=== PATIENT | female | born 1985 | race Caucasian/White ===

== ENCOUNTER 2017-02-23 10:07 | Inpatient (IN) | payer OTHER ==
[~2017-02-23] VITALS: Ht 167.6 cm; Wt 118.9 kg
[~2017-02-23 10:07] MED LIST: ATORVASTATIN CA40 M1 PO; ENALAPRIL MALEA10 MG PO; GLIPIZIDE5 MG PO; GOOD SENSE ASPI81 M3 PO; HYDROCHLOROTHIA25 MG PO; HYDROXYZINE HYD25 MG PO; METFORMIN HCL1000 MG PO; NAPROSYN250 MG PO; TOPAMAX100 MG PO; VENLAFAXINE150 M1
[2017-02-23 10:50] LABS: BASOPHIL % 0.5 % (0-2); PLATELET COUNT 212 x10^3mcL (130-400); RED CELL DISTRIBUTION WIDTH 12.1 % (11.5-14.5)
[2017-02-23 11:01] LABS: CALCIUM 8.7 mg/dL (8.5-10.1); CARBON DIOXIDE 31.2 mmol/L (21-32); CHLORIDE SERUM 102 mmol/L (98-107); CREATININE SERUM 0.6 mg/dL (0.6-1.0); GFR1 > 60 mL/min; GLUCOSE SERUM 183 mg/dL (74-106); POTASSIUM SERUM 4.1 mmol/L (3.5-5.1); SODIUM SERUM 139 mmol/L (136-145)
[2017-02-23 11:07] LABS: ALBUMIN 3.4 g/dL (3.4-5.0); ALKALINE PHOSPHATASE 93 U/L (46-116); ALT/SGPT 46 U/L (14-59); AST/SGOT 28 U/L (15-37); BILIRUBIN TOTAL 0.3 mg/dL (0.20-1.00); TOTAL PROTEIN, SERUM 7.1 g/dL (6.4-8.2)
[2017-02-23] MEDS ORDERED: PROZAC40 MG PO (11:11)
[2017-02-23] MEDS ORDERED: METFORMIN HYD1000 M2 PO (11:14)
[2017-02-23] MEDS ORDERED: VIS25 PO (11:14)
[2017-02-23] MEDS ORDERED: GLIPIZIDE5 M2 PO (11:14)
[2017-02-23] MEDS ORDERED: ZESTRIL20 MG PO (11:14)
[2017-02-23] MEDS ORDERED: METOPROLOL TART25 M1 PO (11:15)
[2017-02-23] MEDS ORDERED: SIMVASTATIN20 M1 PO (11:15)
[2017-02-23 11:23] LABS: MAGNESIUM 1.6 mg/dL (1.8-2.4); PHOSPHOROUS 3.2 mg/dL (2.5-4.9)
[2017-02-23 11:34] LABS: T3 TOTAL 1.06 ng/mL
[2017-02-23 11:38] LABS: CHOLESTEROL/HDL RATIO 3.6
[2017-02-23 12:07] LABS: FREE T4 1.02 ng/dL (0.76-1.46); FREE THYROXINE INDEX 3.1 ug/dL (1.4-4.5); T4(THYROXINE) 8.7 ug/dL (4.7-13.3)
[2017-02-23 12:43] LABS: AMYLASE 50 U/L (25-115); LIPASE 285 IU/L (73-393)
[2017-02-23 12:51] VITALS: BP 135/72
[2017-02-23 13:37] LABS: microscopic required? NO
[2017-02-23 13:46] LABS: urine erythrocyte NEGATIVE (NEGATIVE)
[2017-02-23 13:58] LABS: AMPHETAMINE QUAL UR NONE DETECTED (NEG <=1000)
[2017-02-23 18:20] VITALS: BP 127/75
[2017-02-23 20:49] VITALS: BP 127/75
[2017-02-23 21:41] VITALS: BP 138/82
== END 2017-02-23 22:22 | disposition left against medical advice (07) | DRG 311 ==
LOC: ED 10:07 → DU 11:08
PROVIDERS: Emergency Medicine; Family Medicine; ADMIT Internal Medicine
DX: I24.9 Acute ischemic heart disease, unspecified (principal); I10 Essential (primary) hypertension; E11.9 Type 2 diabetes mellitus without complications; Z79.82 Long term (current) use of aspirin; Z88.8 Allergy status to other drugs, medicaments and biological substances; Z83.3 Family history of diabetes mellitus; Z82.49 Family history of ischemic heart disease and other diseases of the circulatory system; Z80.9 Family history of malignant neoplasm, unspecified; I25.10 Atherosclerotic heart disease of native coronary artery without angina pectoris; E78.5 Hyperlipidemia, unspecified
CPT/HCPCS: 82962; 83880; 84439; 85378; J1885; J7030; Q0092